=== PATIENT | male | born 1945 | race Caucasian/White ===

== ENCOUNTER 2017-01-31 16:15 | Inpatient (IN) | payer MEDICARE, OTHER ==
[~2017-01-31] VITALS: Ht 182.9 cm; Wt 93.0 kg
--- NOTE | ~2017-01-31 | WND ---
ADMIT: 01/31/2017 RM/LOC: 313 [facility] MR#: [id number] [address] [address] [place] [address] [place] [address] W[facility] Care Clinic SEX: M AGE: 72 : 1945 DATE OF VISIT: 02/01/2017 TIME IN: 1615. TIME OUT: 1650. REASON FOR VISIT: Evaluation and treatment of skin concerns. Request for wound care from Dr. Duke. HISTORY OF PRESENT ILLNESS: This is a 72-year-old male, seen for the first time at [facility]. He was helicoptered to the emergency room on 01/31/2017 from [place], [place] for GI bleed. He had been given 2 units of blood en route and had vitamin K. He has a history of atrial fibrillation and he was on an anticoagulant with Coumadin. His INR was elevated, hemoglobin was 8.5. CT of his abdomen was negative except for stones and chronic conditions. He was noted to have an obvious bleed with coffee- ground type emesis as well as passing clots and hematochezia. He was taken to surgery today for the EGD with injection of epinephrine mixture into a distal esophageal ulceration. He was noted to have a distal esophageal ulceration with active bleeding and a small hiatal hernia. He had a supratherapeutic INR of 6.6. 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 He also had a cow step on his left foot approximately a week ago and has had some pain from that area. Wound Care was consulted for evaluation and treatment of left lower extremity. PAST MEDICAL HISTORY: Paroxysmal atrial fibrillation, on chronic Coumadin. History of compression fracture, T12, L1, L2. Neurodermatitis. History of erosive gastritis on EGD in September 2011. Hepatomegaly, etiology unclear. Calcified left upper abdominal mass, stable. Dyslipidemia. History of gout. Vitamin D deficiency. Acne rosacea. History of mild panic attacks. Diverticulosis and history of tubular adenomas removed at colonoscopy in 2006. Osteoarthritis. Benign essential tremor. History of low testosterone. History of B12 deficiency. Magnesium deficiency. History of alcohol use in the past. Previous procedures include colonoscopy in March of 2012. Three tubular adenomas. Traumatic laceration, right preauricular region. Right mandibular fracture, status post open reduction and internal fixation in 2011. EGD with erosive gastritis in 2011. Appendectomy, open, and tonsillectomy as a child. ALLERGIES: No known medication allergies. CURRENT MEDICATIONS: Per the MAR. Please see the MAR for further details. 1. Cordarone. 2. Effexor. 3. Flomax. 4. Lipitor. 5. Zyloprim. 6. Protonix. ADMIT: 01/31/2017 RM/LOC: 313 [facility] MR#: [id number] [address] [place] [phone] [place] [address] [place] [address] Wound Care Clinic SEX: M AGE: 72 : 1945 PRN medications: 1. Hydrocodone. 2. Tylenol. 3. Zofran. 4. Tylenol suppository. 5. Nitrostat. 6. Normal saline. 7. Zofran. FAMILY HISTORY: Father, cancer of the bladder and prostate. Mom with Parkinson disease. Paternal grandfather, heart disease. SOCIAL HISTORY: No history of tobacco or drug use. Occasional beer. Previously drank more in the past. 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 College education. He lives in [place], [place]. REVIEW OF SYSTEMS: He is examined in his hospital room where he is awake, alert, and oriented x3. He just had his EGD this morning. He has an occasional cough. He denies any other congestion or chest pain. He had an elevated temperature earlier today but none currently. No chills. His appetite has been decreased, but he denies any current nausea or vomiting, although he had some prior to admission. He denies any current abdominal discomfort. He does rate the pain in his left lower extremity as 5 to 6. He has done no topical treatment to the left leg. PHYSICAL EXAMINATION: VITAL SIGNS: 98.2, 70, 17, blood pressure 132/84, O2 sats on room air 99%. Focused exam; body wide skin exam was done. On his left upper arm, he does have a purple yellow bruise that measures 18 cm x 8.5 cm. On his left dorsal hand is a deep purple bruise that measures 1.3 cm x 3 cm. On the left upper quadrant of his abdomen is deep purple bruise that measures 3 cm x 6 cm. On his left lower extremity, he has a foot circumference of 25.5 cm, ankle is 28.5 cm, and calf 20 cm, malleolus is 27.5 cm. Posterior tibialis and dorsalis pedis is +2. He has quick capillary refill. On his left knee, there is an abrasion that measures 2 x 1.5 cm, dry red wound base. Surrounding this is a clearing bruise that measures 12 x 8.5 cm. On the anterior rothman is a purple yellow bruise that measures 16 x 5 cm. Around his ankle area circumferentially is deep bruising that measures 15 x 2.5 cm. On his dorsal foot circumferentially is also deep purple that measures 10 cm x 2.3 cm. On his left toes, dorsal surface, from toes 3 to 5 is a bulla with serosanguineous drainage that measures 1 cm x 4 cm. On the dorsal surface of his foot is an ulceration that measures 1.5 cm x 1.5 cm, the depth of 0.2 cm. 50% of this wound base is dark eschar and 50% is dry deep red tissue. Periwound area is a bruising. Under his second toe is a deflated bulla that measures 1.5 cm x 1.5 cm. To the right lower extremity, foot circumference is 24.5 cm, ankle is 22 cm, ADMIT: 01/31/2017 RM/LOC: 313 [facility] MR#: [id number] [address] [address] [place] [address] [place] [address] Wound Care Clinic SEX: M AGE: 72 : 1945 and calf 20 cm, malleolus is 26 cm. Posterior tibialis and dorsalis pedis is +2. On his right knee, he has two crusts that are attached, dark brown in nature. One measured 3 x 1.5 cm, the other 1.5 x 1 cm. Periwound area has resolving bruise. On his right lower arm near the antecubital fossa is a deep purple bruise that measures 11 x 13 cm, and on his left flank and buttock area is a total area of 18 cm x 41 cm that has deep purple to light purple bruising noted. ASSESSMENT: 1. Left foot ulcerations and bruising secondary to trauma. 2. Multiple large bruises body wide due to elevated INR. TREATMENT PLAN: At this point in time, we will just need to monitor the large bruises and see how they resolve. To the left foot, this was cleansed with soapy water, rinsed, and patted dry. To the bulla, after cleansing with alcohol, a sterile needle was used to open the bulla and deflate it of serosanguineous drainage. The epithelium was left intact. Xeroform was placed over the dorsum of the foot, covered with 4 x 4, held in place with Kerlix wrap. This dressing is to continue daily. Double layer Tubigrip size E was applied from the toes to popliteal crease. Recommended that his legs be elevated on pillows. Recommended chair cushion when he is up. Thank you for this referral and Wound will follow. Precious Mchugh APRN/ jose JOB #: [id number] CC: Homar Duke, Attending Physician Homar Duke, Family Physician
--- NOTE | 2017-02-07 08:30 | HP ---
ADMIT: 01/31/2017 RM/LOC: 313 [facility] MR#: [id number] [id number] [address] [place] [address] [place] [address] History and Physical SEX: M AGE: 72 : 1945 DATE OF SERVICE: CHIEF COMPLAINT: Lightheadedness and melanotic stools. HISTORY OF PRESENT ILLNESS: This gentleman is a very pleasant, 72-year-old male, [facility] admission transfer from [facility], with the above complaints. Apparently, the patient presented to the Emergency Department this morning with complaints that he passed out this morning or at least had a presyncopal episode and went down. The patient was seen by his primary care provider yesterday and was found to have a supratherapeutic INR of 6.6. At that time, he was given some vitamin K. Also, had some nausea, vomiting, and some left upper abdominal pain. The patient notes to me that he has been taking ibuprofen almost 1 tablet every 2 hours during the day over the last month or so as he has been doing some wrenching work and having generalized arthritic pains. At any rate, the patient did have 1 melanotic stool there, and since being here in our Emergency Department, he has had another large melanotic stool. No vomiting of blood. The patient has felt lightheaded all day. He did receive 1 unit of packed red blood cells while in the Emergency Department there. They had given him more vitamin K, but no fresh frozen plasma. His hemoglobin dropped from 12.5 yesterday to 9.2 went down to 8.5 in our Emergency Department. His INR has dropped to just above 4. It sounds like he has been complaining of some left upper quadrant pain and has been taking some Kandace-Pollock due to his stomach being upset. Currently, the patient denies any chest pain or shortness of breath. He did state when he got up to go to the bathroom, he needed help as he felt quite lightheaded. The patient has had scopes in the past and has a history of erosive gastritis back in around 2011. He has had some 9 tubular adenomas on lower scopes, but no findings of cancer. He denies any other complaints at this time. The patient does also note some left ankle pain and swelling in the soft tissues. 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 Reports x-rays were negative, but had some skin tissue breakdown and swelling, received Rocephin in clinic yesterday and was started on Keflex for this. PAST MEDICAL HISTORY: Includes: 1. Atrial fibrillation, paroxysmal, on chronic Coumadin. 2. History of compression fractures T12, L1, L2. 3. Neurodermatitis. 4. History of erosive gastritis on EGD in September 2011. 5. Hepatomegaly, unclear etiology. 6. Calcified left upper abdominal mass, stable. 7. Choledocholithiasis. 8. Dyslipidemia. 9. History of gout. 10.Vitamin D deficiency. 11.Acne rosacea. 12.History of mild panic attacks. 13.Diverticulosis and history of tubular adenomas removed at colonoscopy in ADMIT: 01/31/2017 RM/LOC: 313 [facility] MR#: [id number] [address] [place] [phone] [place] [address] [place] [address] History and Physical SEX: M AGE: 72 : 1945 2006. 14.Osteoarthritis. 15.Benign essential tremor. 16.History of low testosterone. 17.History of B12 deficiency. 18.Magnesium deficiency. 19.History of alcohol use in the past. PREVIOUS PROCEDURES: Last colonoscopy was in March of 2012, 3 tubular adenomas, traumatic laceration right preauricular region, and right mandibular fracture post open reduction and internal fixation in 2011, EGD with erosive gastritis in September 2011. He has had an open appendectomy and T and A when he was about 8 years old. MEDICATIONS: Include: 1. Allopurinol 300 mg every day. 2. Effexor 75 mg 2 tabs daily. 3. Keflex 500 mg 2 b.i.d. 4. Lipitor 40 mg 1 at bedtime. 5. Pacerone 200 mg 1 tab p.o. daily. 6. Vitamin D3, 1000 units daily. 7. Zofran 4 mg every 4 hours as needed. ALLERGIES: NO KNOWN DRUG ALLERGIES. FAMILY HISTORY: Father had cancer of the bladder and prostate. Mom with Parkinson disease. Paternal grandfather had heart disease. SOCIAL HISTORY: No tobacco or drug use. He does have a couple drinks a few times a week. Previously, drank more than this in the past. 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 His is Apolonia and she would make medical decisions for him if he was unable to. He does have a daughter, who lives here in [place], her name is Gena Pastrana. REVIEW OF SYSTEMS: A 10-point review of systems obtained, per HPI otherwise negative. PHYSICAL EXAMINATION: VITAL SIGNS: Blood pressure 102/52, pulse 92, respirations 18, and temperature afebrile 96%. GENERAL: Alert and oriented x3. Does not appear in any acute distress. HEENT: Pupils equal, round, and reactive. Extraocular muscles are intact. Throat clear. Trachea is midline. HEART: Regular rate and rhythm. No murmurs, rubs, gallops. LUNGS: Clear to auscultation bilaterally without any wheezes or crackles. ABDOMEN: Soft, nontender, and nondistended. No organomegaly. EXTREMITIES: Does have some swelling in the left lower extremity around the ankle. Some significant bruising cleared. Also, some skin breakdown near the ADMIT: 01/31/2017 RM/LOC: 313 [facility] MR#: [id number] [address] [facility] [address] [place] [phone] [place] [address] [place] [address] History and Physical SEX: M AGE: 72 : 1945 toes on the anterior side secondary to this. No infectious-like symptoms. No cellulitis. NEUROLOGICAL: Intact. No focal deficits. LABORATORY DATA: CMP essentially normal. Creatinine 1. INR is 4.02. Hemoglobin 8.5. ASSESSMENT AND PLAN: A 72-year-old male with: 1. Acute gastrointestinal bleed likely upper bleed. 2. Supratherapeutic INR. 3. Melanotic stools. 4. Acute anemia of blood loss. 5. Paroxysmal atrial fibrillation, on chronic anticoagulation. 6. History of erosive gastritis. 7. Left ankle sprain, swelling post blunt trauma. 8. Multiple toes with skin breakdown. 9. Hyperlipidemia. 10.Depression/anxiety. 11.Vitamin D deficiency. PLAN: We will admit the patient to the ICU. They are reversing him down in the Emergency Department here with FFP. He has received 1 unit already of packed red blood cells, given his symptoms and recent melanotic stool done here in the ER, is rather large, we will go ahead and give him another unit of blood. We will hopefully keep his blood pressure down. Start him on a PPI drip and keep him from further active bleeding. We will monitor serial hemoglobins overnight q.4 hours. I did discuss with Dr. Fritz, and he is aware of the patient. He will likely need upper endoscopy in the morning. Hopefully, we can get him stabilized and not have to give him anymore blood at this point. I discussed that his likely NSAID use was possibly and likely contributed to this. We will follow closely and anticipate likely EGD in the morning. Greater than 35 minutes was spent with the patient. Greater than 50% of that was spent in [id number] interaction discussing treatment course. The patient was in agreement with this. Homar Duke MD/ jose JOB #: [id number] CC: Homar Duke, Attending Physician Homar Duke, Family Physician
[2017-02-07] MEDS ORDERED: CORDARONE DPS200 MG PO (10:52)
[2017-02-07] MEDS ORDERED: ZYLOPRIM-DPS300 MG PO (10:53)
[2017-02-07] MEDS ORDERED: LIPITOR DPS20 MG PO (10:53)
[2017-02-07] MEDS ORDERED: ZOFRAN ODT4 MG SL (10:53)
[2017-02-07] MEDS ORDERED: EFFEXOR DPS75 MG PO (10:53)
[2017-02-07] MEDS ORDERED: VITAMIN D-32000 UNI1 PO (10:54)
[2017-02-07] MEDS ORDERED: FEOSOL-DPS325 MG PO (10:54)
[2017-02-07] MEDS ORDERED: PROTONIX40 MG PO (10:54)
[2017-02-07] MEDS ORDERED: CARAFATE DPS1 GM PO (10:54)
[2017-02-07] MEDS ORDERED: FLOMAX DPS0.4 MG PO (10:54)
--- NOTE | 2017-02-07 11:26 | OR ---
ADMIT: 01/31/2017 RM/LOC: 313 [facility] MR#: [id number] 2620 [facility] [address] [place] [phone] [place] [address] [place] [address] Operative/Delivery Room Report SEX: M AGE: 72 : 1945 SURGERY DATE: 02/01/2017 SURGEON: William Montoya MD PREOPERATIVE DIAGNOSIS: Upper gastrointestinal bleed. POSTOPERATIVE DIAGNOSES: 1. Distal esophageal ulceration with active bleeding. 2. Small hiatal hernia. PROCEDURE PERFORMED: EGD with injection of epinephrine mixture into the distal esophageal ulceration. ANESTHESIA: Sedation. ESTIMATED BLOOD LOSS: Approximately 30 mL of active extravasation as well as fair bit of blood within the stomach at the start of the procedure. DESCRIPTION OF PROCEDURE: After appropriate informed consent was obtained, the patient was brought to the endoscopy suite. IV sedation was provided by Anesthesia. A well lubricated endoscope was introduced and passed down the esophagus. Immediately, in the esophagus, there was some bright red blood. At the distal esophagus, there was evidence of an ulceration at the GE junction with active extravasation, just a slight trickle of blood there. About a 1 cm sliding type hiatal hernia. No stricture or narrowing. No mass or tumor was noted. The scope was advanced to the stomach. There was a pretty large pool of blood and clot within the gastric fundus. I suctioned most of this out, but the larger clots were difficult to get suctioned out through the scope. The distal stomach, the antrum appeared normal. The pylorus was intubated. Duodenal bulb, second and third portions of the duodenum appeared normal. The scope was then pulled back into the stomach, retroflexed again revealing the hiatal hernia from below as well as pool of blood in the proximal fundus. I ended up withdrawing the scope and using the gastric lavage tube to get most of the clot out. The scope was re-introduced and some more fluid was suctioned out. I then, at this point, injected the distal esophageal ulceration with an epinephrine mixture. This was injected ADMIT: 01/31/2017 RM/LOC: 313 [facility] MR#: [id number] [address] [address] [place] [address] [place] [address] Operative/Delivery Room Report SEX: M AGE: 72 : 1945 circumferentially around the ulcerated site as well as directly in the middle of it. Still had a little bit of clot in the fundus that I could not get suctioned out, so I removed the scope one more time, put the lavage tube back down, I was able to remove the remainder of the clot. The scope was re- introduced and at this time, I could see the entirety of the gastric fundus. There was no bleeding or ulceration in the gastric fundus, and also the distal esophageal ulceration was hemostatic at that point. The stomach was then deflated and the scope withdrawn without apparent complications. The patient tolerated the procedure well and taken to the recovery room in stable condition. William Montoya MD/ jose JOB #: [id number] CC: Homar Duke, Attending Physician Homar Duke, Family Physician Homar Duke MD
--- NOTE | 2017-02-18 08:17 | ER ---
ADMIT: 01/31/2017 RM/LOC: 313 [facility] MR#: [id number] 2620 [facility] [address] [place] [phone] [place] [address] [place] [address] Emergency Room Report SEX: M AGE: 72 : 1945 DATE: 01/31/2017 ADDENDUM: A 72-year-old white male who had been helicoptered from [place], [place] down here for GI bleed. He did have one up there, they had given him 2 units en route. He also had vitamin K. He has a history of atrial fibrillation, that is why he is anticoagulant on Coumadin. His INR is like 2.4 here. Hemoglobin was 8.5. Rest of the lab is pending. CT of his abdomen was negative except for some stones and some chronic conditions. He did have one more GI bleed. There was more obvious blood. At this time, we went ahead and did the entire reversal with Kcentra FFP per protocol. I spoke with Dr. Duke. He will admit to the unit. CONDITION ON DISCHARGE: Critical. Nathan Quintana MD/ valerianol JOB #: [id number] CC: Homar Duke MD, Attending Physician Homar Duke MD, Family Physician
--- NOTE | 2017-02-22 16:19 | CO ---
ADMIT: 01/31/2017 RM/LOC: 313 [facility] MR#: [id number] [address] [address] [place] [address] [place] [address] Consultation Report SEX: M AGE: 72 : 1945 DATE OF CONSULTATION: 01/31/2017 ATTENDING PHYSICIAN: Homar Duke CONSULTING PHYSICIAN: Jimmy Fritz MD REASON FOR CONSULTATION: GI bleed. HISTORY OF PRESENT ILLNESS: This patient is a 72-year-old male, who was transferred I believe from [place]. Elevated INR of 4, it sounds like it was 5 or some yesterday. He was told to hold his Coumadin. I do not believe he did. He is on Coumadin routinely for atrial fibrillation. He has been having some melanotic stools. It sounds like he probably had some coffee-ground type emesis as well and passing some clots and even some hematochezia. He had one of these maroon type stools down in the emergency room, very lightheaded, passing out. His hemoglobin was 8.5 here. He is currently getting 1 unit of blood, and they are correcting his INR, which is now 4. He has been taking a lot of Aleve and NSAID secondary to pains and callus kept on increased left foot and so he has been taking a fair amount of that. He has never had a normal foot otherwise. PAST MEDICAL HISTORY: Otherwise significant for coronary artery disease, atrial fibrillation, gallstones, and gout. He has had previous tonsils, adenoids, appendectomy, mandible fracture in the past. He has also had bladder cancer. ALLERGIES: HE LISTS NO SIGNIFICANT ALLERGIES. MEDICATIONS: He takes: 1. Amiodarone. 2. Warfarin. 3. Venlafaxine. 4. Allopurinol. 5. Atorvastatin. 6. Ondansetron. 7. Tamsulosin. 8. Vitamin D3. 9. Aspirin. SOCIAL HISTORY: Denies significant tobacco, alcohol, or illicit drugs. ADMIT: 01/31/2017 RM/LOC: 313 [facility] MR#: [id number] [address] [address] [place] [address] [place] [address] Consultation Report SEX: M AGE: 72 : 1945 PHYSICAL EXAMINATION: GENERAL: He is alert. He is oriented. He is in no acute distress. HEENT: His sclerae are nonicteric. He is alert and oriented. CHEST: Clear. HEART: Regular. ABDOMEN: Soft, thin. No pain to palpation. No organomegaly or mass. ASSESSMENT AND PLAN: Most likely an ulcer-induced from non-steroidals with elevated INR. Plan is to reverse and improve his INR, transfuse as necessary, and tomorrow, we will take a look with an EGD, me or one of my partners. This has been discussed with him and family, they are agreeable. Jimmy Fritz MD/ jose JOB #: [id number] CC: Homar Duke, Attending Physician Homar Duke, Family Physician
--- NOTE | 2017-03-06 08:10 | DS ---
ADMIT: 01/31/2017 RM/LOC: [facility] MR#: [id number] [address] [place] [address] [place] [id number] General Discharge Summary SEX: M AGE: 72 : 1945 ADMISSION DATE: 01/31/2017 DISCHARGE DATE: 02/06/2017 FINAL DIAGNOSES: 1. Upper gastrointestinal bleed, acute. 2. Esophageal ulcer, bleeding, post treatment. 3. Acute blood loss anemia. 4. Calcified abdominal mass-like structure in the left upper quadrant, possible hematoma. 5. Edema, likely from volume expansion with fluids and blood products. 6. Hypokalemia. 7. Transfusion fever without anaphylaxis. 8. Chronic congestive heart failure, systolic. 9. Left foot contusion. 10.Atrial fibrillation, normally on Coumadin. 11.Supratherapeutic INR on admission, post reversal. 12.Chronic depression. 13.Chronic anxiety. 14.History of compression fractures at T12, L1, and L2. 15.Neurodermatitis. 16.History of erosive gastritis. 17.Hepatomegaly, unclear etiology. 18.Choledocholithiasis. 19.Dyslipidemia. 20.History of gout. 21.Vitamin D deficiency. 22.Acne, rosacea. 23.History of diverticulosis. 24.History of colon polyps with tubular adenomas. 25.Generalized osteoarthritis. 26.Benign essential tremor. 27.Chronic magnesium deficiency. CONSULTATIONS: 1. Include surgery with Dr. Jimmy Fritz and Dr. William Montoya. 2. Wound care. PROCEDURES: The patient underwent EGD with injection of epinephrine into the distal esophageal ulcer on 02/01/[address] William Montoya. IMAGIN. The patient had an abdominal CT scan done in the Emergency Department showing an indeterminate approximately 6.6 cm calcified mass-like density in the left upper quadrant, may represent an old calcified hematoma with some extrinsic mass effect. 2. Cholelithiasis with 2 small 5 mm calcified gallstones without evidence of acute cholecystitis. 3. Gastric distention. 4. Cardiomegaly with coronary artery calcification. ADMIT: 01/31/2017 RM/LOC: [facility] MR#: [id number] [address] [place] [address] [place] [address] General Discharge Summary SEX: M AGE: 72 : 1945 5. Very small left-sided pleural effusion. 6. Ankle and foot x-rays showing degenerative changes and soft tissue swelling, otherwise no fractures. 7. Chest x-ray on 02/06 showed basilar opacities and pleural effusions. Discharge creatinine was 0.7. Discharge magnesium was 2.1. Discharge potassium was 2.8. Discharge hemoglobin was 7.3, which was stable from the previous day at 7.3, and the previous day prior to that 7.8. REASON FOR ADMISSION: Please refer to tico Evans and P. Briefly, this is a 72-year-old male, [place] admission from [facility], was sent here with the complaints of lightheadedness and melenic stools. The patient had been seen previous day by his own physician, noted to have a supratherapeutic INR. He was having some lightheadedness. His hemoglobin trended down from 12 to 10 over 24 hours. He was seen in the ER in [place]. There, he was noted to be complaining of melenic stools. He was given some more vitamin K; however, his blood pressures were low, so he was subsequently transported to [facility] for further evaluation and stabilization. HOSPITAL COURSE: The patient was admitted through our ER. Evaluated down there. Started on blood products and reversing agents for his supratherapeutic INR. He was given initially 1 unit with 2 units on hold. Started on a Protonix drip. Surgery was notified and consulted. The patient was made n.p.o. after midnight and consented for an EGD. Serial hemoglobins were followed. Coumadin was held. The patient underwent scope with the above results. Epinephrine was injected to the ulcerative lesion. The patient remained in the ICU over the next few days as his hemoglobin continued to trend down. During that time, he was seen by wound care, who followed contusion of his left foot and did appropriate dressings. The patient received Venofer x2 during the hospitalization to help with iron replacement. The patient on the received additional blood products given his hemoglobin. No repeat scope was done at this time as it was felt that likely his blood counts were equilibrating. The patient did have some continued symptoms of orthostasis over the 1st 48-72 hours, which also prompted more blood transfusions. On 02/03, hemoglobin was 6.6, and again, the patient received blood transfusion of 1 unit. The patient did have a fever later that evening. He was worked up for possible infection and sepsis, started on Levaquin and Zosyn. Blood cultures obtained. Ultimately, the fever subsided and there are no sources of infection. It was felt that this was likely from the transfusion he had received that day. The patient was noted to be somewhat volume overloaded and was given IV Lasix on 02/05. On 02/06, the patient objectively looked very good. He was ready to go home. He felt much better. We did give him one dose of Venofer as well as potassium replacement. He had denied any melenic stools. He had been without blood products since the with hemoglobin stable in the low 7s. Discussed his potassium being low with his family as well as his blood counts and that he would need close followup, and they were in agreement with this plan. Follow up closely with his primary care provider. ADMIT: 01/31/2017 RM/LOC: [facility] MR#: [id number] [address] [place] [address] [place] [address] General Discharge Summary SEX: M AGE: 72 : 1945 DISCHARGE MEDICATIONS: Please refer to hospital record. We are discharging him on iron. Did recommend to hold his Coumadin until followup with his primary care provider. We are also discharging him on Protonix and Carafate. DISCHARGE INSTRUCTIONS: The patient was instructed to follow up with his primary care provider the following day with a repeat CBC and a BMP to evaluate his hemoglobin and potassium. Instructed to take medications as prescribed. Monitor for melenic stools. We instructed to avoid NSAIDs as this sounded like he was taking significant amounts over the last month as he has been helping as a branch operations manager. We instructed him to remain on PPI. We will also need to probably follow up with his abdominal mass in his left upper quadrant, calcified hematoma with the repeat CT scan in 3-4 months. Recommended the patient not work the rest of the week, he was in agreement with this. Discharge activities took approximately 35 minutes. Homar Duke MD/ jose JOB #: [id number] CC: Homar Duke MD, Attending Physician Homar Duke MD, Family Physician
== END 2017-02-06 11:23 | disposition home or self-care (01) | DRG 381 ==
LOC: ER 16:15 → 3ICU 18:12 → 5MS 02-03 11:44
PROVIDERS: ADMIT Family Medicine
DX: K22.11 Ulcer of esophagus with bleeding (principal); D62 Acute posthemorrhagic anemia; I50.22 Chronic systolic (congestive) heart failure; E87.70 Fluid overload, unspecified; I48.0 Paroxysmal atrial fibrillation; E83.42 Hypomagnesemia; E55.9 Vitamin D deficiency, unspecified; G25.0 Essential tremor; E53.8 Deficiency of other specified B group vitamins; R16.0 Hepatomegaly, not elsewhere classified; K80.50 Calculus of bile duct without cholangitis or cholecystitis without obstruction; E87.6 Hypokalemia; K44.9 Diaphragmatic hernia without obstruction or gangrene; R79.1 Abnormal coagulation profile; S93.402A Sprain of unspecified ligament of left ankle, initial encounter; W55.22XA Struck by cow, initial encounter; R19.00 Intra-abdominal and pelvic swelling, mass and lump, unspecified site; E78.5 Hyperlipidemia, unspecified; I25.10 Atherosclerotic heart disease of native coronary artery without angina pectoris; F41.9 Anxiety disorder, unspecified; F32.9 Major depressive disorder, single episode, unspecified; M10.9 Gout, unspecified; L71.9 Rosacea, unspecified; K57.90 Diverticulosis of intestine, part unspecified, without perforation or abscess without bleeding; M19.90 Unspecified osteoarthritis, unspecified site; Z79.01 Long term (current) use of anticoagulants; Z85.51 Personal history of malignant neoplasm of bladder; Z79.82 Long term (current) use of aspirin